=== PATIENT | male | born 1945 | race Caucasian/White ===

== ENCOUNTER → 2017-05-11 | Outpatient (CLI) | payer OTHER ==
[~2017-05-11] MED LIST: ASPIR-TRIN325 MG PO; ATORVASTATIN CA80 M1 PO; CETIRIZINE10 MG PO; CIALIS5 MG PO; DIAZEPAM5 MG PO; GUAIFENESIN600 MG PO; IRON325 M1 PO; LEVALBUTER1.25 MG/0. INH; RESTORIL7.5 M1 PO; SYMB160 INH; TOPROL XL25 MG PO
--- NOTE | ~2017-05-11 | ST ---
[place], [place] EXERCISE STRESS TEST REPORT NAME: MARISEL FERNÁNDEZ UNIT #: [id number] ROOM: DOCTOR: BONNIE BUSTOS MD BIRTHDATE: [birth year] DOS: 05/11/2017 PHARMACOLOGIC STRESS TEST INDICATIONS: Chest discomfort. PROCEDURE: The patient was given a rapid infusion of regadenoson 0.4 mg intravenously followed by a saline flush. He experienced dyspnea, headache and slight queasiness. His resting heart rate of 83, hasmukh to a peak of 110. The resting blood pressure 158/80, fell to 110/70. Symptoms and vital signs recovered spontaneously. No diagnostic electrocardiographic changes were seen and the patient maintained a right bundle-branch block throughout the study. After the infusion of regadenoson, he was given radionuclide intravenously. IMPRESSION: 1. Well tolerated infusion of regadenoson. 2. Radionuclide administered. Please see the separate imaging report for further details of the patient's stress test results. BONNIE BUSTOS MD CM:STRESS:EXERCISE STRESS TEST REPORT [id number] BONNIE BUSTOS MD
== END | disposition home or self-care (01) ==
LOC: CARD 03:10
DX: R06.02 Shortness of breath (principal); R07.2 Precordial pain

== ENCOUNTER 2020-01-10 01:33 | Emergency (ER) | payer OTHER ==
[~2020-01-10] VITALS: Wt 70.3 kg
== END 2020-01-10 02:15 | disposition short-term general hospital (02) ==
LOC: ED 01:33
DX: S51.812A Laceration without foreign body of left forearm, initial encounter (principal); S90.32XA Contusion of left foot, initial encounter; F17.200 Nicotine dependence, unspecified, uncomplicated; Z79.899 Other long term (current) drug therapy; Z79.82 Long term (current) use of aspirin; V47.5XXA Car driver injured in collision with fixed or stationary object in traffic accident, initial encounter; Y93.89 Activity, other specified; Y92.89 Other specified places as the place of occurrence of the external cause; Y99.8 Other external cause status

== ENCOUNTER 2024-10-14 16:19 | Inpatient (IN) | payer OTHER ==
[~2024-10-14] VITALS: Ht 167.6 cm; Wt 63.5 kg
[~2024-10-14 16:19] MED LIST changes: +AMBIEN10 M1 PO; +AMITRIPTYLINE25 MG PO; +CLOPIDOGREL75 MG PO; +DULCOLAX STOOL100 MG PO; +HYDROCODONE-AC1 EAC1 PO; +ISORDIL20 MG PO; +LOPRESSOR100 M1 PO; +MELATONIN5 M7 PO; +NEXIUM40 MG PO; +OMEPRAZOLE40 MG PO; +OXYBUTYNIN10 MG PO; +SEROQUEL50 MG PO; +VITAMIN B COMP1 EAC1 PO; +VITAMIN D3125 MC1 PO; +XOPENEX HFA15 GM INH; +ZESTRIL10 MG PO
[2024-10-14] MEDS ORDERED: LORazepam 1 MG TAB PO PRN (17:00)
[2024-10-14] MEDS ORDERED: hydrOXYzine pamoate 25 MG CAP PO PRN (17:00)
[2024-10-14] MEDS ORDERED: MG-AL HYDROXIDE/SIMETICONE 30 ML UDC PO PRN (17:00)
[2024-10-14] MEDS ORDERED: Ziprasidone Mesylate 20 MG VIAL IM PRN (17:00)
[2024-10-14] MEDS ORDERED: ACETAMINOPHEN 325 MG TAB PO PRN (17:00)
[2024-10-14] MEDS ORDERED: Magnesium Hydroxide 30 ML UDC PO PRN (17:00)
[2024-10-14] MEDS ORDERED: Water, Sterile 10 ML VIAL IM PRN (17:10)
[2024-10-14 17:44] VITALS: BP 134/66
[2024-10-14] MEDS ORDERED: Levalbuterol Hydrochloride 1.25 MG VIAL NEB PRN (18:55)
[2024-10-14] MEDS ORDERED: Albuterol Sulfate 2.5 MG/3 ML VIAL NEB SCH (19:05)
[2024-10-14] MEDS ORDERED: BUDESONIDE 0.5 MG AMP NEB SCH (19:10)
[2024-10-14 20:00] VITALS: BP 125/62
[2024-10-14] MEDS ORDERED: risperiDONE 1 MG TAB PO SCH (21:00)
[2024-10-14] MEDS ORDERED: ZOLPIDEM TARTRATE 5 MG TAB PO SCH (21:00)
[2024-10-14] MEDS ORDERED: Mirtazapine 15 MG TAB PO SCH (21:00)
[2024-10-14] MEDS ORDERED: Metoprolol Tartrate 50 MG TAB PO SCH (21:00)
[2024-10-14] MEDS ORDERED: Oxybutynin Chloride 5 MG TAB PO SCH (21:00)
[2024-10-14] MEDS ORDERED: ATORVASTATIN CALCIUM 80 MG TAB PO SCH (21:00)
[2024-10-14] MEDS ORDERED: Budesonide/Formoterol Fumarate 160/4.5 inhaler INH SCH (22:00)
[2024-10-15] MEDS ORDERED: OMEPRAZOLE 20 MG CAP PO SCH (06:00)
[2024-10-15 08:00] VITALS: BP 118/55
[2024-10-15] MEDS ORDERED: LISINOPRIL 10 MG TAB PO SCH (09:00)
[2024-10-15] MEDS ORDERED: ASPIRIN 325 MG TAB PO SCH (09:00)
[2024-10-15] MEDS ORDERED: Clopidogrel Hydrogen Sulfate 75 MG TAB PO SCH (09:00)
[2024-10-15 20:00] VITALS: BP 99/45
[2024-10-15 22:03] VITALS: BP 114/55
[2024-10-16 06:47] LABS: BASO # 0.1 10*3/uL (0.0-0.1); BASO % 0.9 % (0.0-1.0); EOS # 0.3 10*3/uL (0.0-0.4); EOS % 3.5 % (1.0-4.0); HEMATOCRIT 29.1 % (42.0-52.0); MEAN CORPUSCULAR HGB 16.8 pg (27.0-31.0); MEAN CORPUSCULAR HGB CONC 27.1 g/dl (33.0-37.0); MEAN PLATELET VOLUME 8.8 fl (9.6-12.3); MONO # 1.2 10*3/uL (0.1-1.0); MONO % 14.5 % (3.0-9.0); NEUT % 48.6 % (47.0-73.0); PLATELET COUNT AUTOMATED 354 10*3/uL (130-400); RED BLOOD COUNT 4.69 10*6/uL (4.50-5.90); RED CELL DISTRI WIDTH 22.5 % (0-14.5); WHITE BLOOD COUNT 8.2 10*3/uL (4.8-10.8)
[2024-10-16 07:18] LABS: POTASSIUM 4.4 mmol/L (3.4-5.1); TOTAL PROTEIN 6.7 gm/dL (6.0-8.0)
[2024-10-16 08:30] VITALS: BP 106/51
[2024-10-16] MEDS ORDERED: SODIUM CHLORIDE 0.9% 500 ML IV ONE ×2 (14:00→21:40)
[2024-10-16] MEDS ORDERED: Ondansetron Hydrochloride 4 MG TAB SL PRN (15:20)
[2024-10-16 20:00] VITALS: BP 95/38
[2024-10-16] MEDS ORDERED: Metoprolol Tartrate 50 MG TAB PO SCH (20:40)
[2024-10-17 06:28] LABS: BASO # 0.1 10*3/uL (0.0-0.1); BASO % 0.8 % (0.0-1.0); EOS # 0.3 10*3/uL (0.0-0.4); EOS % 3.8 % (1.0-4.0); HEMATOCRIT 28.6 % (42.0-52.0); MEAN CELL VOLUME 62.3 fl (80.0-94.0); MEAN CORPUSCULAR HGB 16.6 pg (27.0-31.0); MEAN CORPUSCULAR HGB CONC 26.6 g/dl (33.0-37.0); MEAN PLATELET VOLUME 8.9 fl (9.6-12.3); MONO # 0.8 10*3/uL (0.1-1.0); MONO % 10.9 % (3.0-9.0); NEUT # 3.8 10*3/uL (2.3-7.9); NEUT % 53.7 % (47.0-73.0); PLATELET COUNT AUTOMATED 330 10*3/uL (130-400); RED BLOOD COUNT 4.59 10*6/uL (4.50-5.90); RED CELL DISTRI WIDTH 22.4 % (0-14.5); WHITE BLOOD COUNT 7.1 10*3/uL (4.8-10.8)
[2024-10-17 07:37] LABS: POTASSIUM 4.5 mmol/L (3.4-5.1); TOTAL PROTEIN 6.7 gm/dL (6.0-8.0)
[2024-10-17 08:00] VITALS: BP 100/52
[2024-10-17] MEDS ORDERED: Memantine Hydrochloride 5 MG TAB PO SCH (10:55)
[2024-10-17 11:44] LABS: ABG BASE EXCESS -5.9 mmol/L (-2.0-3.0); ABG O2 SATURATION 96.3 % (94.0-98.0); ARTERIAL BLOOD GAS PH 7.377 (7.350-7.450); ARTERIAL BLOOD GAS PO2 82.9 mmHg (83.0-108.0)
[2024-10-17 20:00] VITALS: BP 111/49
[2024-10-18 06:40] LABS: BASO # 0.1 10*3/uL (0.0-0.1); BASO % 0.8 % (0.0-1.0); EOS # 0.4 10*3/uL (0.0-0.4); EOS % 4.6 % (1.0-4.0); HEMATOCRIT 30.3 % (42.0-52.0); MEAN CELL VOLUME 63.1 fl (80.0-94.0); MEAN CORPUSCULAR HGB 16.5 pg (27.0-31.0); MEAN CORPUSCULAR HGB CONC 26.1 g/dl (33.0-37.0); MEAN PLATELET VOLUME 8.9 fl (9.6-12.3); MONO # 0.9 10*3/uL (0.1-1.0); MONO % 10.5 % (3.0-9.0); NEUT # 4.9 10*3/uL (2.3-7.9); NEUT % 59.1 % (47.0-73.0); PLATELET COUNT AUTOMATED 313 10*3/uL (130-400); RED CELL DISTRI WIDTH 22.1 % (0-14.5); WHITE BLOOD COUNT 8.4 10*3/uL (4.8-10.8)
[2024-10-18 08:00] VITALS: BP 115/55
[2024-10-18] MEDS ORDERED: NA FERRIC GLUC CMPL/SUCROSE 62.5 MG/5 ML VIAL IV ONE (14:40)
[2024-10-18] MEDS ORDERED: FERROUS SULFATE 325 MG TAB PO SCH (17:00)
[2024-10-18 20:00] VITALS: BP 113/54
[2024-10-19 08:24] VITALS: BP 109/49
[2024-10-19] MEDS ORDERED: FERROUS SULFATE 325 MG TAB PO SCH (10:00)
[2024-10-19 20:00] VITALS: BP 114/82
[2024-10-19] MEDS ORDERED: Memantine Hydrochloride 5 MG TAB PO SCH (21:00)
[2024-10-20 08:00] VITALS: BP 121/53
[2024-10-20 20:00] VITALS: BP 97/91
[2024-10-21] MEDS ORDERED: RISPERDAL1 M1 PO (07:57)
[2024-10-21] MEDS ORDERED: ZOLPIDEM TART5 MG PO (07:57)
[2024-10-21] MEDS ORDERED: MIRTAZAPINE15 M2 PO (07:57)
[2024-10-21 08:00] VITALS: BP 118/84
[2024-10-21] MEDS ORDERED: Memantine Hydrochloride 10 MG TAB PO SCH (09:00)
== END 2024-10-21 14:44 | disposition home or self-care (01) | DRG 883 ==
LOC: 3N 16:19
PROVIDERS: Counselor Professional; Internal Medicine; Nurse Practitioner Women's Health; ADMIT Psychiatry & Neurology Psychiatry; ATTEND Psychiatry & Neurology Psychiatry
PROC: GZHZZZZ Group Psychotherapy (ICD-10-PCS; principal; 2024-10-17)
PROC: GZ56ZZZ Individual Psychotherapy, Supportive (ICD-10-PCS; 2024-10-17)
DX: F63.81 Intermittent explosive disorder (principal); E87.1 Hypo-osmolality and hyponatremia; D75.839 Thrombocytosis, unspecified; I25.10 Atherosclerotic heart disease of native coronary artery without angina pectoris; J44.9 Chronic obstructive pulmonary disease, unspecified; E78.5 Hyperlipidemia, unspecified; F17.200 Nicotine dependence, unspecified, uncomplicated; F32.9 Major depressive disorder, single episode, unspecified; I10 Essential (primary) hypertension; R73.9 Hyperglycemia, unspecified; R82.71 Bacteriuria; F51.05 Insomnia due to other mental disorder; I25.2 Old myocardial infarction; Z82.49 Family history of ischemic heart disease and other diseases of the circulatory system; Z82.5 Family history of asthma and other chronic lower respiratory diseases; Z88.8 Allergy status to other drugs, medicaments and biological substances; Z91.09 Other allergy status, other than to drugs and biological substances; Z79.899 Other long term (current) drug therapy; Z79.01 Long term (current) use of anticoagulants; Z79.2 Long term (current) use of antibiotics

== ENCOUNTER 2024-11-14 19:25 | Emergency (ER) | payer OTHER ==
[~2024-11-14] VITALS: Ht 162.5 cm; Wt 63.5 kg
[~2024-11-14 19:25] MED LIST changes: +MIRTAZAPINE15 M2 PO; +RISPERDAL1 M1 PO; +ZOLPIDEM TART5 MG PO
[2024-11-14] MEDS ORDERED: Albuterol Sulf/Ipratropium 3 ML VIAL NEB ONE ×2 (19:35→22:35)
[2024-11-14] MEDS ORDERED: methylPREDNISolone sod succ 125 MG VIAL IV ONE (19:35)
[2024-11-14 20:22] LABS: BASO # 0.2 10*3/uL (0.0-0.1); BASO % 0.8 % (0.0-1.0); EOS # 0.3 10*3/uL (0.0-0.4); EOS % 1.5 % (1.0-4.0); HEMATOCRIT 35.3 % (42.0-52.0); MEAN CELL VOLUME 66.9 fl (80.0-94.0); MEAN CORPUSCULAR HGB 17.6 pg (27.0-31.0); MEAN CORPUSCULAR HGB CONC 26.3 g/dl (33.0-37.0); MEAN PLATELET VOLUME 8.8 fl (9.6-12.3); MONO # 1.4 10*3/uL (0.1-1.0); MONO % 6.6 % (3.0-9.0); NEUT # 16.3 10*3/uL (2.3-7.9); NEUT % 78.5 % (47.0-73.0); PLATELET COUNT AUTOMATED 382 10*3/uL (130-400); RED BLOOD COUNT 5.28 10*6/uL (4.50-5.90); RED CELL DISTRI WIDTH 25.6 % (0-14.5); WHITE BLOOD COUNT 20.8 10*3/uL (4.8-10.8)
[2024-11-14 20:37] LABS: ACT PARTIAL THROMBO TIME 24.4 SECONDS (20.0-32.1)
[2024-11-14 20:45] LABS: ALKALINE PHOSPHATASE 100 U/L (46-116); BUN 23 mg/dl (9-23); CHLORIDE 105 mmol/L (98-107); POTASSIUM 4.8 mmol/L (3.4-5.1); SGPT/ALT 12 U/L (5-49); TOTAL PROTEIN 7.9 gm/dL (6.0-8.0)
[2024-11-14] MEDS ORDERED: ZITHROMAX250 MG PO (23:20)
[2024-11-14] MEDS ORDERED: PREDNISONE20 M1 PO (23:20)
== END 2024-11-14 23:36 | disposition home or self-care (01) ==
LOC: ED 19:25
PROVIDERS: Internal Medicine
DX: J44.1 Chronic obstructive pulmonary disease with (acute) exacerbation (principal); D72.829 Elevated white blood cell count, unspecified; D53.9 Nutritional anemia, unspecified; I13.0 Hypertensive heart and chronic kidney disease with heart failure and stage 1 through stage 4 chronic kidney disease, or unspecified chronic kidney disease; N18.31 Chronic kidney disease, stage 3a; I50.9 Heart failure, unspecified; R51.9 Headache, unspecified; R11.2 Nausea with vomiting, unspecified; K21.9 Gastro-esophageal reflux disease without esophagitis; Z91.041 Radiographic dye allergy status; Z79.899 Other long term (current) drug therapy; Z79.82 Long term (current) use of aspirin; Z87.891 Personal history of nicotine dependence